=== PATIENT | male | born 1995 | race Caucasian/White ===

== ENCOUNTER 2018-01-09 18:14 | Emergency (ER) | payer OTHER, SELFPAY ==
[2018-01-09 18:15] VITALS: BP 135/66; PULSE 91; RESP 16; TEMP 37.1; O2SAT 97; BMI 29.0
[2018-01-09] MEDS: 0.9% Normal Saline 1,000 ML 999 ML IV (19:26)
[2018-01-09] MEDS: Ondansetron 4 MG/2 ML Vial IV (19:26)
[2018-01-09 19:34] LABS: Anion Gap 11 (5-15); BUN 14 mg/dL (7-18); BUN/Creat Ratio 11.4 RATIO (10-20); Calcium,Total 9.2 mg/dL (8.5-10.1); Chloride 100 mmol/L (98-107); Creatinine, Serum 1.23 mg/dL (0.70-1.30); EST Glomerular Filtration Rate 79 mL/min (>60); Est Glom Filt Rate - Afr Amer 96 mL/min (>60); Estimated Creatinine Clearance 107.36 ml/min; Glucose 93 mg/dL (74-106); Potassium 3.5 mmol/L (3.5-5.1); Sodium Level 135 mmol/L (136-145)
[2018-01-09 19:36] LABS: Absolute Lymphocyte Count 0.78 X10^3/ul (0.83-4.51); Absolute Neutrophil Count 3.2 X10^3/uL (2.0-7.7); Basophil% 0.2 % (0-1); Eosinophils% 0.2 % (0-5); Hematocrit 44.5 % (40-54); Hemoglobin 15.4 g/dl (13.0-16.5); Lymphocyte # 0.78 X10^3/ul (4.0); Lymphocyte % 17.3 % (19-41); Mean Corp Hgb Conc 34.6 g/gl (32-36); Mean Corpuscular Hgb 30.4 pg (27.0-32.0); Mean Corpuscular Volume 87.8 fL (80-94); Mean Platelet Vol. 10.5 fl (6.2-12.0); Monocyte% 10.6 % (0-10); Neutrophil # 3.22 X10^3/uL (2.7-7.7); Neutrophil % 71.5 % (47-70); POSITIVE COUNT NO; POSITIVE DIFFERENTIAL NO; POSITIVE MORPHOLOGY NO; Platelet Count 142 K/mm3 (150-450); RBC Distribution Width CV 12.9 % (11.6-14.6); RBC Distribution Width SD 40.8 fl (35.1-43.9); Red Blood Count 5.07 M/mm3 (4.6-6.2); White Blood Count 4.5 K/mm3 (4.4-11.0)
[2018-01-09 19:37] LABS: Basophil# 0.01 X10^3/uL; Eosinophil# 0.01 X10^3/uL; Monocyte# 0.48 X10^3/uL
[2018-01-09 20:15] LABS: White Blood Cells 0 SEEN /hpf (0-5)
[2018-01-09 20:19] LABS: Color, Urine Yellow (Yellow); Glucose, Dipstick Normal (Normal); Ketone-Dipstick 50 mg/dl (Negative); Leukocyte Esterase-Dipstick Negative /ul (Negative); Nitrite-Dipstick Negative (Negative); Occult Blood-Urine 10 /ul (Negative); Protein-Dipstick 15 mg/dl (Negative); Urine Bilirubin Dipstick Negative (Negative); Urine Clarity Clear (Clear); Urine Urobilinogen Normal (Normal)
[2018-01-09 20:33] LABS: Red Blood Cells-Urine 0-5 SEEN /hpf (0-5); Squamous Epithelial Cells - UA 0-5 SEEN /hpf (0-5)
[2018-01-09 21:00] LABS: Bacteria RARE /hpf (None Seen); Mucous, Urine 1+ /hpf (<or=2+)
[2018-01-09] MEDS: 0.9% Normal Saline 1,000 ML 150 ML IV (21:17)
[2018-01-09 21:18] VITALS: BP 118/68; PULSE 98; RESP 14; TEMP 37.8; O2SAT 98
--- NOTE | 2018-01-09 22:24 | ED.RN ---
[facility] called for update on patient at this time
--- NOTE | 2018-01-09 23:03 | ED.VISSUMM ---
- ER Visit Summary Date of Service: 01/09/18 Chief Complaint: Right lower quadrant pain History of Present Illness: The patient is a 22 M with 3 day history of right lower quadrant pain. He has had nausea with some dry heaves this morning. He states his urine is dark and concentrated but he does not have dysuria. He did take Advil around 1 PM this afternoon. Physical Examination: Vital signs unremarkable. Patient's lying in bed no acute distress. Head neck examination is normal. Heart is regular rate and rhythm. Lung sounds are clear. Abdomen is soft with focal tenderness in the right lower quadrant. There is no guarding or rebound. Hypoactive bowel sounds are noted. Test Results: CBC and chemistry studies unremarkable. Urinalysis shows 50 ketones but no sign of acute infection. CT abdomen pelvis shows mild hepatosplenomegaly. There is mildly thick-walled gallbladder, likely physiologic. No acute appendicitis noted. Emergency Department Course and Treatment: Patient was given IV fluids and Zofran. He declined anything further for pain. Test results were discussed with patient. He will follow bland diet and further monitor his symptoms. If his symptoms worsen he is to repeat turn for repeat examination. He will follow-up with a [facility]. Treatment Plan: [] Disposition: Discharge Impression: Abdominal pain, uncertain etiology This note was generated with [employer] dictation software. It may contain incorrect words, spelling, and punctuation that were not noted in review of the chart prior to signing ED Disposition - Plan for ED Patient: Disposition: Home or Assisted Living Chief Complaint: Abd Pain Instructions: ED Abdominal Pain Unkn Cause Male Referrals: [facility] [GROUP OF PHYSICIANS] - 3-5 Days if not improving
--- NOTE | 2018-01-09 23:12 | ED.RN ---
[facility] called and updated on patients condition and status
[2018-01-09 23:13] VITALS: BP 137/85; PULSE 83; RESP 17; O2SAT 99
== END 2018-01-09 23:14 | disposition home or self-care (01) ==
PROVIDERS: Emergency Provider Emergency Medicine
DX: R10.31 Right lower quadrant pain (principal); Z87.891 Personal history of nicotine dependence
CPT/HCPCS: 74177; 80048; 81001; 85025; 96361; 96374; 99283; J7030; Q9967; A4216; J2405